=== PATIENT | male | born 1965 | race Caucasian/White ===

== ENCOUNTER 2020-07-05 09:08 | Emergency (ER) | payer BC, OTHER ==
[~2020-07-05] VITALS: Ht 177.8 cm; Wt 90.7 kg
[2020-07-05 09:08] VITALS: BP_SYST 119
[2020-07-05] MEDS ORDERED: KETOROLAC TROMETHAMINE 30 MG VIAL IM ONE (10:00)
[2020-07-05 10:17] LABS: BILIRUBIN,URINE NEGATIVE (NEGATIVE); BLOOD, URINE NEGATIVE (NEGATIVE); CLARITY/URINE CLEAR (CLEAR); COLOR,URINE YELLOW (YELLOW); GLUCOSE,URINE NEGATIVE (NEGATIVE); KETONES,URINE 2+ (NEGATIVE); LEUKOCYTE ESTERASE ,URINE NEGATIVE (NEGATIVE); NITRITE, URINE NEGATIVE (NEGATIVE); PH,URINE 6.5 (5.0-8.0); PROTEIN URINE NEGATIVE (NEGATIVE)
[2020-07-05] MEDS ORDERED: DICY10CA13 PO (11:21)
[2020-07-05] MEDS ORDERED: NAPR-1172 PO (11:21)
[2020-07-05 11:28] VITALS: BP_SYST 119
== END 2020-07-05 11:28 | disposition home or self-care (01) ==
LOC: SED 09:08
DX: R10.31 Right lower quadrant pain (principal); F12.90 Cannabis use, unspecified, uncomplicated
CPT/HCPCS: 76376; 81003; 96372; 99284